=== PATIENT | female | born 1960 | race Two or more races ===

== ENCOUNTER 2018-04-15 09:06 | Observation (INO) | payer BC ==
--- NOTE | 2018-04-15 09:19 | PDOC ---
History of Present Illness - General Stated Complaint: NECK PAIN,NUMBNESS Time Seen by Provider: 04/15/18 09:08 - History of Present Illness Initial Comments: Patient is a 57 year old female, with a significant past medical history of HTN and ?heart murmur/arrhythmia, who presents to the emergency department complaining of L neck pain and peripheral tingling in hands. Pt states three days ago she noted tightness and pain in her L neck and jaw, with no radiation or other associated symptoms, resolving spontaneously. This AM, pt endorses similar symptoms starting at ~730AM, describe the pain as 10/10 squeezing pain in L neck and shoulder, with no radiation, worsened by exertion. Pt states she has had similar pain intermittently over the last few months. Pt denies chest pain, lightheadness, vision changes, SOB, ab pain, f/c/n/v/d, rashes, cough, back pain, claudications. She endorses unlimited exercise tolerance. Of note, pt states she had minor swelling in legs BL one week ago with complete resolution. Pt endorses a hx of ?heart murmur/arrhythmia diagnosed in and was seen by Dr. Skye Hernandez, however has not been seen by provider in two years. Pt states she also received a stress test a few years ago and the results were negative. Pt unsure if she has ever received an ECHO. She does not take any medications at home. Allergies: None Past surgical history: Fibroid removal Social History: Denies alcohol, smoking or drug use PMD: Dr Danii Bailey 04/15/18 09:18 Past History - Past Medical History Allergies/Adverse Reactions: Allergies Allergy/AdvReac Type Severity Reaction Status Date / Time No Known Drug Allergies Allergy Verified 04/15/18 10:34 Home Medications: Ambulatory Orders NK [No Known Home Medication] 04/15/18 Anemia: Yes Asthma: No Cancer: No Cardiac Disorders: Yes (sob when climbing stairs) CVA: No COPD: No CHF: No Dementia: No Diabetes: No GI Disorders: No Disorders: No HTN: Yes (no meds) Hypercholesterolemia: Yes (no meds) Liver Disease: No Seizures: No Thyroid Disease: No - Surgical History Abdominal Surgery: No Appendectomy: No Cardiac Surgery: No Cholecystectomy: No Lung Surgery: No Neurologic Surgery: No Orthopedic Surgery: No - Suicide/Smoking/Psychosocial Hx Smoking History: Never smoked Have you smoked in the past 12 months: No Hx Alcohol Use: No Drug/Substance Use Hx: No Substance Use Type: None Hx Substance Use Treatment: No Review of Systems - Review of Systems Comments:: GENERAL/CONSTITUTIONAL: No fever or chills. No weakness. HEAD, EYES, EARS, NOSE AND THROAT: No change in vision. No ear pain or discharge. No sore throat. CARDIOVASCULAR: +LE swelling one week ago. No chest pain or shortness of breath RESPIRATORY: No cough, wheezing, or hemoptysis. GASTROINTESTINAL: No nausea, vomiting, diarrhea or constipation. GENITOURINARY: No dysuria, frequency, or change in urination. MUSCULOSKELETAL: +L sided neck and shoulder pain, worsened by exertion. No joint or muscle swelling or pain. No back pain. SKIN: No rash NEUROLOGIC: +BL hand tingling. No headache, vertigo, loss of consciousness, or change in strength/sensation. ENDOCRINE: No increased thirst. No abnormal weight change HEMATOLOGIC/LYMPHATIC: No anemia, easy bleeding, or history of blood clots. ALLERGIC/IMMUNOLOGIC: No hives or skin allergy. 04/15/18 09:40 *Physical Exam - Physical Exam Comments: GENERAL: MA woman, Awake, alert, and fully oriented, in mild distress HEAD: No signs of trauma, normocephalic, atraumatic EYES: PERRLA, EOMI, sclera anicteric, conjunctiva clear ENT: Auricles normal inspection, hearing grossly normal, nares patent, oropharynx clear without exudates. Moist mucosa NECK: Normal ROM, supple, no lymphadenopathy, JVD, or masses LUNGS: No distress, speaks full sentences, clear to auscultation bilaterally HEART: No pain on palpation of anterior chest wall. Regular rate and rhythm, normal S1 and S2, no murmurs, rubs or gallops, peripheral pulses normal and equal bilaterally. ABDOMEN: Soft, nontender, normoactive bowel sounds. No guarding, no rebound. No masses EXTREMITIES : Normal inspection, Normal range of motion, trace pedal edema. No clubbing or cyanosis. NEUROLOGICAL: Cranial nerves II through XII grossly intact. Normal speech, normal gait, no focal sensorimotor deficits SKIN: Warm, Dry, normal turgor, no rashes or lesions noted 04/15/18 09:41 ED Treatment Course - LABORATORY CBC & Chemistry Diagram: 04/15/18 10:09 04/15/18 10:09 Medical Decision Making - Medical Decision Making 57 year old female, with a significant past medical history of HTN and ?heart murmur/arrhythmia, who presents to the emergency department complaining of L neck pain and peripheral tingling in hands. PE unremarkable. DDX includes unstable angina, CHF, carotid dissection, MSK pain, tension BONNER, herniated disc/ spinal nerve compression. Will ordered CBC, CMP, trops, lipid profile, TSH, Lactate, CXR, EKG. Likely tele obs admission. 04/15/18 10:[address] Danii Bailey. Plan for Tele obs admission. MB sent to [facility]. 04/15/18 13:29 Spoke with TOSHIA Mast. Will admit Tele obs under Dr. Dolan. 04/15/18 13:41 *DC/Admit/Observation/Transfer Diagnosis at time of Disposition: ACS (acute coronary syndrome), Neck pain - Discharge Dispostion Condition at time of disposition: Fair Decision to Admit order: Yes - Referrals - Patient Instructions - Post Discharge Activity
[2018-04-15 10:20] LABS: BASO % 0.4 % (0-2.0); EOS % 0.7 % (0-4.5); HEMATOCRIT 40.9 % (32.4-45.2); HEMOGLOBIN 13.7 GM/dL (10.7-15.3); LYMPH % 29.2 % (8-40); MCH 31.4 pg (25.7-33.7); MCHC 33.5 g/dl (32.0-36.0); MEAN CELL VOLUME 93.7 fl (80-96); MEAN PLT VOLUME 8.3 fl (7.5-11.1); MONO % 6.3 % (3.8-10.2); NEUT % 63.4 % (42.8-82.8); PLATELET COUNT 332 K/MM3 (134-434); RBC 4.37 M/mm3 (3.60-5.2); RDW 13.5 % (11.6-15.6); WHITE BLOOD COUNT 6.7 K/mm3 (4.0-10.0)
[2018-04-15] MEDS ORDERED: morphine CARPU-JECT 2 MG/1 ML DISP.SYRIN IVPUSH ONE (10:26)
[2018-04-15] MEDS ORDERED: ASPIRIN 81 MG CHEWABLE TABLETS PO ONE (10:26)
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
[2018-04-15 10:34] VITALS: BMI 23.3
[2018-04-15] MEDS ORDERED: ASPIRIN 81 MG CHEWABLE TABLETS ONE (10:49)
[2018-04-15] MEDS ORDERED: morphine SULFATE 4 MG/ML VIAL ONE (10:50)
[2018-04-15 11:12] LABS: CHLORIDE 104 mmol/L (98-107); POTASSIUM 4.1 mmol/L (3.5-5.1); SODIUM 141 mmol/L (136-145)
[2018-04-15 11:43] LABS: ALBUMIN 4.2 g/dl (3.4-5.0); ALK PHOS 81 U/L (45-117); ANION GAP 8 (8-16); BILIRUBIN,TOTAL 0.3 mg/dL (0.2-1.0); BLOOD UREA NITROGEN 16 mg/dL (7-18); CALCIUM 9.7 mg/dL (8.5-10.1); CHOLESTEROL 212 mg/dL (50-200); CO2 29 mmol/L (21-32); CREATININE 0.8 mg/dL (0.55-1.02); GLUCOSE,RANDOM 100 mg/dL (74-106); HDL CHOLESTEROL 84 mg/dL (40-60); SGOT/AST 23 U/L (15-37); SGPT/ALT 30 U/L (12-78); TOT PROT 7.8 g/dl (6.4-8.2); TRIGLYCERIDES 114 mg/dL (35-160)
--- NOTE | 2018-04-15 11:50 | EKG ---
Test Reason : Blood Pressure : / mmHG Vent. Rate : 063 BPM Atrial Rate : 063 BPM P-R Int : 130 ms QRS Dur : 084 ms QT Int : 418 ms P-R-T Axes : 044 014 055 degrees QTc Int : 427 ms NORMAL SINUS RHYTHM NORMAL ECG WHEN COMPARED WITH ECG OF 05-APR-2005 13:27, NO SIGNIFICANT CHANGE WAS FOUND Confirmed by CELSA NICOLE MD ([id number]) on 04/15/2018 11:49:59 AM Referred By: Confirmed By:CELSA NICOLE MD
--- NOTE | 2018-04-15 13:51 | HP ---
CHIEF COMPLAINT: Left-sided neck pain and high BP PCP: Danii Bailey - last seen 2 years ago HISTORY OF PRESENT ILLNESS: 57 year-old female with a PMH significant for diverticulosis, gastritis, multinodular goiter, and lumbosacral DDD. Patient presents to the ED today for chronic left-sided neck pain that also involves her right shoulder and right scapula. Also complains of left jaw pain that occurs with the shoulder/scapula/ neck pain. Also complains of an enlarged thyroid. Was at work this morning at the [employer] and she had the school nurse check her blood pressure which was high, reportedly over 200 systolic. At the same time patient felt tingling in her bilateral forearms. She was concerned that her high blood pressure was related to her neck pain so she came to the hospital. She last saw Dr. Bailey 2 years ago. She admits she refuses to take any type of medication, that Dr. Bailey "understands this." ER course was notable for: (1) troponin neg x 1 (2) BP 159/87 (3) TSH wnl Recent Travel: No PAST MEDICAL HISTORY: Diverticulosis Gastritis Multinodular goiter Lumbosacral DDD PAST SURGICAL HISTORY: Perianal lesion (-) biopsy 2012 Social History: works at [employer] Smoking: no Alcohol: no Drugs: no Family History: Allergies No Known Drug Allergies Allergy (Verified 04/15/18 10:34) Home Medications Medication Instructions Recorded NK [No Known Home Medication] 04/15/18 REVIEW OF SYSTEMS CONSTITUTIONAL: Absent: fever, chills, diaphoresis, generalized weakness, malaise, loss of appetite, weight change HEENT: Absent: rhinorrhea, nasal congestion, throat pain, throat swelling, difficulty swallowing, mouth swelling, ear pain, eye pain, visual changes CARDIOVASCULAR: Absent: chest pain, syncope, palpitations, irregular heart rate, lightheadedness , peripheral edema RESPIRATORY: Absent: cough, shortness of breath, dyspnea with exertion, orthopnea, wheezing, stridor, hemoptysis GASTROINTESTINAL: Absent: abdominal pain, abdominal distension, nausea, vomiting, diarrhea, constipation, melena, hematochezia GENITOURINARY: Absent: dysuria, frequency, urgency, hesitancy, hematuria, flank pain, genital pain MUSCULOSKELETAL: +left shoulder, left scapula, left neck pain Absent: myalgia, arthralgia, joint swelling, back pain, neck pain SKIN: Absent: rash, itching, pallor HEMATOLOGIC/IMMUNOLOGIC: Absent: easy bleeding, easy bruising, lymphadenopathy, frequent infections ENDOCRINE: Absent: unexplained weight gain, unexplained weight loss, heat intolerance, cold intolerance NEUROLOGIC: +bilateral forearm tingling Absent: headache, focal weakness or paresthesias, dizziness, unsteady gait, seizure, mental status changes, bladder or bowel incontinence PSYCHIATRIC: Absent: anxiety, depression, suicidal or homicidal ideation, hallucinations. PHYSICAL EXAMINATION Vital Signs - 24 hr 04/15/18 09:10 Temperature 98.1 F Pulse Rate 64 Respiratory 16 Rate Blood Pressure 159/87 O2 Sat by Pulse 99 Oximetry (%) GENERAL: Awake, alert, and fully oriented, in no acute distress. HEAD: Normal with no signs of trauma. EYES: Pupils equal, round and reactive to light, extraocular movements intact, sclera anicteric, conjunctiva clear. No lid lag. EARS, NOSE, THROAT: Ears normal, nares patent, oropharynx clear without exudates. Moist mucous membranes. NECK: Normal range of motion, supple without lymphadenopathy, JVD, or masses. LUNGS: Breath sounds equal, clear to auscultation bilaterally. No wheezes, and no crackles. No accessory muscle use. HEART: Regular rate and rhythm, normal S1 and S2 ABDOMEN: Soft, nontender, not distended, normoactive bowel sounds, no guarding, no rebound, no masses. No hepatomegaly or splenomegaly. MUSCULOSKELETAL: Normal range of motion at all joints. No bony deformities or tenderness. No CVA tenderness. UPPER EXTREMITIES: 2+ pulses, warm, well-perfused. No cyanosis. No clubbing. No peripheral edema. LOWER EXTREMITIES: 2+ pulses, warm, well-perfused. No calf tenderness. No peripheral edema. NEUROLOGICAL: Cranial nerves II-XII intact. Normal speech. Normal gait. Laboratory Results - last 24 hr 04/15/18 04/15/18 04/15/18 10:09 10:09 10:09 WBC 6.7 RBC 4.37 Hgb 13.7 D Hct 40.9 D MCV 93.7 MCH 31.4 D MCHC 33.5 RDW 13.5 D Plt Count 332 MPV 8.3 Neutrophils % 63.4 D Lymphocytes % 29.2 D Monocytes % 6.3 Eosinophils % 0.7 Basophils % 0.4 Sodium 141 Potassium 4.1 Chloride 104 Carbon Dioxide 29 Anion Gap 8 BUN 16 Creatinine 0.8 Creat Clearance w eGFR > 60 Random Glucose 100 Lactic Acid 2.1 H Calcium 9.7 Total Bilirubin 0.3 D AST 23 ALT 30 Alkaline Phosphatase 81 Creatine Kinase 185 Creatine Kinase Index 0.7 CK-MB (CK-2) 1.475 Troponin I < 0.02 Total Protein 7.8 Albumin 4.2 Triglycerides 114 Cholesterol 212 H Total LDL Cholesterol 112 H HDL Cholesterol 84 H TSH 1.81 ASSESSMENT/PLAN Left-sided neck and jaw pain, chronic --exam suggestive of musculoskeletal component, palpable muscle spasm left scapula which is exquisitely tender --CT neck: unremarkable --apply hot pack; patient declines muscle relaxant --r/o ACS: troponin neg x 2; ECG not suggestive of acute ischemic event; telemetry monitoring; Echo: normal LV, normal RV, no significant valvular pathology; seen and evaluated by cardiology, no further ischemic workup indicated; observe on telemetry overnight Enlarged thyroid --patient complains of enlarged thyroid; previous scans show multinodular goiter; last saw Dr. Red in 2014 --TSH wnl --suggest outpatient follow up with Dr. Red Elevated LDL --start daily ASA, Lipitor 20mg Bilateral arm tingling, resolved --CT neck is unremarkable; if symptoms persist, should get outpatient neuro evaluation Hypertension --patient is on no meds and refuses to take any medications; prefers to control with diet and exercise --strongly suggested patient follow up with Dr. Bailey Visit type - Emergency Visit Emergency Visit: Yes ED Registration Date: 04/15/18 Care time: The patient presented to the Emergency Department on the above date and was hospitalized for further evaluation of their emergent condition. - New Patient This patient is new to me today: Yes Date on this admission: 04/15/18 - Critical Care Critical Care patient: No Hospitalist Screening - Colonoscopy Questionnaire Colonoscopy Questionnaire: Colonoscopy Questionnaire - Patient: 50 - 75 years old and never had a screening colonoscopy: Yes History of colon or rectal polyps, or CA: Yes History of IBD, Crohn's disease or UC: No History of abdominal radiation therapy as a child: No - Relative: 1 with colon or rectal CA, or polyps at age 60 or younger: Unknown Colon or rectal CA diagnosed at age 45 or younger: Unknown Multiple relatives with colon or rectal CA: Unknown - Outcome: Screening Result: Positive Screen
--- NOTE | 2018-04-15 15:35 | CON.CARD ---
Consult Consult Specialty:: Cardiology Referred by:: Pro Reason for Consultation:: neck pain - History of Present Illness Chief Complaint: neck pain History of Present Illness: She is a 57 year old female, with a history of HTN, thyroid nodules, lumbar spine DJD, and ?heart murmur/arrhythmia (seen by Dr Escalante long ago with normal stress test and unknown echo results), who presents with left sided neck pain and peripheral tingling in hands, not always temporally related. Pt states three days ago she noted tightness and pain in her L neck and jaw, with no radiation, resolving spontaneously, occasionally also with pain and difficulty on swallowing both liquids and solids. No chest pain, sob, orthopnea, pnd or edema. She also complains of leg tingling. No cramps. No VICKERS. Exercise tolerance is without limits. Echo done, results pending. - History Source History Provided By: Patient, Medical Record - Past Medical History ...LMP: 04/24/13 - Alcohol/Substance Use Hx Alcohol Use: No - Smoking History Smoking history: Never smoked Have you smoked in the past 12 months: No Home Medications - Allergies Allergies/Adverse Reactions: Allergies Allergy/AdvReac Type Severity Reaction Status Date / Time No Known Drug Allergies Allergy Verified 04/15/18 10:34 - Home Medications Home Medications: Ambulatory Orders NK [No Known Home Medication] 04/15/18 Review of Systems - Review of Systems Constitutional: reports: No Symptoms Eyes: reports: No Symptoms HENT: reports: Difficult Swallowing, Throat Pain Neck: reports: Pain on Movement, Tenderness Cardiovascular: reports: No Symptoms Respiratory: reports: No Symptoms Gastrointestinal: reports: No Symptoms Vital Signs: Vital Signs Temperature 98.1 F 04/15/18 09:10 Pulse Rate 64 04/15/18 09:10 Respiratory Rate 16 04/15/18 09:10 Blood Pressure 159/87 04/15/18 09:10 O2 Sat by Pulse Oximetry (%) 99 04/15/18 09:10 Constitutional: Yes: No Distress, Calm Eyes: Yes: Conjunctiva Clear, EOM Intact HENT: Yes: Atraumatic, Normocephalic Neck: Yes: Supple, Trachea Midline Respiratory: Yes: Regular, CTA Bilaterally Gastrointestinal: Yes: Normal Bowel Sounds, Soft Cardiovascular: Yes: Regular Rate and Rhythm JVD: No Carotid Bruit: No PMI: Non-Displaced Heart Sounds: Yes: S1, S2 Murmur: Yes: Systolic Murmur, Grade 2 Musculoskeletal: Yes: WNL Extremities: Yes: WNL Edema: No Peripheral Pulses WNL: Yes - Other Data Labs, Other Data: CBC, BMP 04/15/18 10:09 04/15/18 10:09 Troponin, BNP 04/15/18 10:09 Troponin I < 0.02 Troponin, BNP 04/15/18 10:09 Troponin I < 0.02 Imaging - Results Chest X-ray: Report Reviewed (wendy) EKG: Report Reviewed (normal ECG) Problem List - Problems (1) Neck pain Assessment/Plan: She has low risk pain. No evidence of ACS at this point. Echo results pending. would defer ischemia workup at this point. She may benefit from ENT and also from neuro evaluation. Observe on Tele overnight. Code(s): M54.2 - CERVICALGIA
[2018-04-15] MEDS: HEPARIN NA (PORCINE) 5,000 UNITS/ML 1ML VIAL SQ SCH (21:00)
[2018-04-15] MEDS ORDERED: ATORVASTATIN CA 20 MG TABLET (FP) PO SCH (22:00)
[2018-04-16] MEDS: HEPARIN NA (PORCINE) 5,000 UNITS/ML 1ML VIAL SQ SCH (06:00)
[2018-04-16 06:03] VITALS: TEMP 98
[2018-04-16 06:30] LABS: BASO % 0.5 % (0-2.0); EOS % 1.4 % (0-4.5); HEMATOCRIT 39.7 % (32.4-45.2); HEMOGLOBIN 13.7 GM/dL (10.7-15.3); LYMPH % 48.6 % (8-40); MCH 32.6 pg (25.7-33.7); MCHC 34.4 g/dl (32.0-36.0); MEAN CELL VOLUME 94.7 fl (80-96); MEAN PLT VOLUME 8.4 fl (7.5-11.1); MONO % 5.9 % (3.8-10.2); NEUT % 43.6 % (42.8-82.8); PLATELET COUNT 311 K/MM3 (134-434); RBC 4.19 M/mm3 (3.60-5.2); RDW 13.5 % (11.6-15.6); WHITE BLOOD COUNT 6.7 K/mm3 (4.0-10.0)
[2018-04-16 06:54] LABS: ANION GAP 6 (8-16); BLOOD UREA NITROGEN 13 mg/dL (7-18); CALCIUM 9.3 mg/dL (8.5-10.1); CHLORIDE 104 mmol/L (98-107); CO2 32 mmol/L (21-32); CREATININE 0.9 mg/dL (0.55-1.02); GLUCOSE,RANDOM 103 mg/dL (74-106); MAGNESIUM 2.3 mg/dL (1.8-2.4); POTASSIUM 4.4 mmol/L (3.5-5.1); SGOT/AST 27 U/L (15-37); SGPT/ALT 30 U/L (12-78); SODIUM 142 mmol/L (136-145)
[2018-04-16 06:56] LABS: ALK PHOS 67 U/L (45-117); BILIRUBIN,TOTAL 0.4 mg/dL (0.2-1.0); TOT PROT 7.6 g/dl (6.4-8.2)
[2018-04-16] MEDS ORDERED: ASPIRIN COATED 81 MG TABLET.EC PO SCH (10:00)
--- NOTE | 2018-04-16 10:16 | PN ---
Progress Note, Physician History of Present Illness: seen and examined today in [facility]. no overnight events. no new complaints. - Current Medication List Current Medications: Active Medications Aspirin (Ecotrin -) 81 mg PO DAILY [facility] Last Admin: 04/16/18 09:11 Dose: 81 mg Atorvastatin Calcium (Lipitor -) 20 mg PO HS [facility] Last Admin: 04/15/18 21:00 Dose: Not Given Heparin Sodium (Porcine) (Heparin -) 5,000 unit SQ TID [facility] Last Admin: 04/16/18 06:00 Dose: Not Given - Objective Vital Signs: Vital Signs Temperature 98 F 04/16/18 06:00 Pulse Rate 59 L 04/16/18 06:00 Respiratory Rate 18 04/16/18 06:00 Blood Pressure 144/85 04/16/18 06:00 O2 Sat by Pulse Oximetry (%) 99 04/15/18 21:00 Constitutional: Yes: Well Nourished, No Distress, Calm Eyes: Yes: Conjunctiva Clear, EOM Intact, PERRL HENT: Yes: WNL, Atraumatic, Normocephalic Neck: Yes: WNL, Supple, Trachea Midline Cardiovascular: Yes: WNL, Regular Rate and Rhythm, S1, S2. No: Bradycardia, Tachycardia, Pulse Irregular, Bruit, JVD, Gallop, Murmur, Rub, S3, S4, Varicosities Respiratory: Yes: WNL, Regular, CTA Bilaterally. No: Rales, Rhonchi, Wheezes Gastrointestinal: Yes: WNL, Normal Bowel Sounds, Soft. No: Distention, Tenderness Musculoskeletal: Yes: WNL Extremities: Yes: WNL Edema: No Peripheral Pulses WNL: Yes Peripheral Pulses: Left Doralis Pedis: 2+, Right Dorsalis Pedis: 2+ Integumentary: Yes: WNL Neurological: Yes: WNL, Alert, Oriented, Cran Nerves II-XII Intact ...Motor Strength: WNL Psychiatric: Yes: WNL, Alert, Oriented Labs: CBC, BMP 04/16/18 05:35 04/16/18 05:35 - ....Imaging Chest X-ray: Report Reviewed, Image Reviewed EKG: Report Reviewed, Image Reviewed Other: Report Reviewed, Image Reviewed (tele-nsr, mild sinus bennett, no sig arrhythmias) Assessment/Plan (1) Neck pain She has low risk pain. No evidence of ACS cardiac enzymes wnl echo showed normal LVEF with overall normal structural heart would defer ischemia workup at this point. no events on telemetry pt is acceptable for discharge from a cardiac standpoint with outpatient f/up
--- NOTE | 2018-04-16 10:38 | DS ---
Physical Exam: SUBJECTIVE: Patient seen and examined. She c/o left sided neck pain and lower ext paresthesia. She does not want medication and refuses a cane or walker, OBJECTIVE: Vital Signs Period Temp Pulse Resp BP Sys/[place] Pulse Ox Last 24 Hr 97.8 F-98.4 F 53-62 18-18 130-164/83-92 98-99 PE Neuro: alert, awake, cn 2-12intact, diminished sensory b/l lower ext HEENT: L sided neck tenderness refer to shoulder PULM: CTAB CV: s1 s2 rrr Abd: s nt nd + bs Ext: warm, no le edema Laboratory Results - last 24 hr 04/15/18 04/15/18 04/15/18 10:09 10:09 16:50 WBC RBC Hgb Hct MCV MCH MCHC RDW Plt Count MPV Neutrophils % Lymphocytes % Monocytes % Eosinophils % Basophils % Sodium 141 Potassium 4.1 Chloride 104 Carbon Dioxide 29 Anion Gap 8 BUN 16 Creatinine 0.8 Creat Clearance w eGFR > 60 Random Glucose 100 Lactic Acid 2.1 H Calcium 9.7 Magnesium Total Bilirubin 0.3 D AST 23 ALT 30 Alkaline Phosphatase 81 Creatine Kinase 185 Creatine Kinase Index 0.7 CK-MB (CK-2) 1.475 Troponin I < 0.02 < 0.02 Total Protein 7.8 Albumin 4.2 Triglycerides 114 Cholesterol 212 H Total LDL Cholesterol 112 H HDL Cholesterol 84 H TSH 1.81 04/15/18 04/16/18 04/16/18 21:30 05:35 05:35 WBC 6.7 RBC 4.19 Hgb 13.7 Hct 39.7 MCV 94.7 MCH 32.6 MCHC 34.4 RDW 13.5 Plt Count 311 MPV 8.4 Neutrophils % 43.6 D Lymphocytes % 48.6 H D Monocytes % 5.9 Eosinophils % 1.4 D Basophils % 0.5 Sodium 142 Potassium 4.4 Chloride 104 Carbon Dioxide 32 Anion Gap 6 L BUN 13 Creatinine 0.9 Creat Clearance w eGFR > 60 Random Glucose 103 Lactic Acid Calcium 9.3 Magnesium 2.3 Total Bilirubin 0.4 D AST 27 ALT 30 Alkaline Phosphatase 67 Creatine Kinase Creatine Kinase Index CK-MB (CK-2) Troponin I < 0.02 Total Protein 7.6 Albumin 4.0 Triglycerides Cholesterol Total LDL Cholesterol HDL Cholesterol TSH HOSPITAL COURSE: Date of Admission:04/15/18 Date of Discharge: 04/16/18 Minutes to complete discharge: 37 Discharge Summary Reason For Visit: ACUTE CORONARY SYNDROME; NECK PAIN Current Active Problems ACS (acute coronary syndrome) (Acute) Neck pain (Acute) Hospital Course: Initial Hospital Course Briefly, this 57 year-old female with a PMH significant for diverticulosis, gastritis, multinodular goiter, and lumbosacral DDD presented with chronic left- sided neck pain which involves her right shoulder and right scapula. Also complained of left jaw pain that occurs with the shoulder/scapula/neck pain and an enlarged thyroid. While at work this morning at the [employer] and she had the school nurse check her blood pressure which was high, reportedly over 200 systolic. At the same time patient felt tingling in her bilateral forearms. She was concerned that her high blood pressure was related to her neck pain so she came to the hospital. She last saw Dr. Bailey 2 years ago. She admits she refuses to take any type of medication, that Dr. Bailey "understands this." Subsequent Hospital Course/Progress Note/DC Summary: Plan: 1. Left-sided neck and jaw pain, chronic - Likely musculoskeletal component vs chronic pain d/t bulging discs - CT neck: unremarkable - PT denies pain medication, muscle relaxant, neuropathy medication 2. Chest pain - Trops negative - r/o ACS, defer ischemic work up at this time - Echo: normal LV, normal RV, no significant valvular pathology; seen and evaluated by cardiology, no further ischemic workup indicated - No tele events 3. Enlarged thyroid - Patient complains of enlarged thyroid; previous scans show multinodular goiter ; last saw Dr. Red in 2014 - TSH wnl - Suggest outpatient follow up with Dr. Red 4. Elevated LDL - Started daily ASA, Lipitor 20mg, unclear if pt will take 5. Bilateral arm tingling, resolved - CT neck is unremarkable - Has seen neurology in past, Dr. Ghosh, MRI lumbar spine noted, pt requests another neurologist - Additional referral given for pain management 6. B/l lower ext paresthesia - Pt refuses medication, walker or cane 7. Hypertension - Patient is on no meds and refuses to take any medications; prefers to control with diet and exercise - Has an appt with Dr. Bailey scheduled next month, she will keep Dispo: - Home with above referral information Condition: Stable - Instructions Diet, Activity, Other Instructions: Please return to the ED for any new, persistent, or worsening symptoms. Follow up with your PCP in 1 week for continued blood pressure management Referrals for neurology and pain management enclosed Follow up with Dr. Red for thyroid management. Referrals: Danii Bailey [Primary Care Provider] - 1 week Nba Shahid DO [Staff Physician] - (Neurology referral ) Maksim Ellis MD [Staff Physician] - (pain management referral ) Disposition: HOME - Home Medications Comprehensive Discharge Medication List: Ambulatory Orders NK [No Known Home Medication] 04/15/18 This patient is new to me today: Yes Date on this admission: 04/16/18 Emergency Visit: Yes ED Registration Date: 04/15/18 Care time: The patient presented to the Emergency Department on the above date and was hospitalized for further evaluation of their emergent condition. Critical Care patient: No - Discharge Referral Referred to [facility] Med [facility].: No
[2018-04-16 11:19] VITALS: BP 143/96; PULSE 62
--- NOTE | 2018-04-16 11:55 | EKG ---
Test Reason : Blood Pressure : / mmHG Vent. Rate : 064 BPM Atrial Rate : 064 BPM P-R Int : 132 ms QRS Dur : 084 ms QT Int : 424 ms P-R-T Axes : 047 000 049 degrees QTc Int : 437 ms NORMAL SINUS RHYTHM NORMAL ECG WHEN COMPARED WITH ECG OF 15-APR-2018 09:32, NO SIGNIFICANT CHANGE WAS FOUND Confirmed by NILE TORRES MD ([id number]) on 04/16/2018 11:55:09 AM Referred By: JOHN TAVERAS DR Confirmed By:NILE TORRES MD
== END 2018-04-16 12:41 | disposition home or self-care (01) ==
LOC: JER 09:06 → JERBED 13:39 → J4S 18:11
PROVIDERS: ADMIT Internal Medicine; ATTEND Nurse Practitioner Acute Care
DX: I24.9 Acute ischemic heart disease, unspecified (principal); M54.2 Cervicalgia; R68.84 Jaw pain; G89.29 Other chronic pain; I10 Essential (primary) hypertension; E78.00 Pure hypercholesterolemia, unspecified
CPT/HCPCS: 36415; 71045-TC-FY; 72125-TC; 80053; 80061; 82550; 82553; 83605; 83721; 83735; 84443; 84484; 85025; 93005; 93010; 93306-TC; 93880-TC; 99285-25; G0378